=== PATIENT | female | born 1960 | race Caucasian/White ===

== ENCOUNTER 2016-10-26 08:37 | Day surgery (SDC) | payer OTHER ==
[~2016-10-26] VITALS: Ht 170.2 cm; Wt 50.3 kg
[~2016-10-26 08:37] MED LIST: AMLO5TAB2 PO; ASCO500T9 PO; CHOL100018 PO; LIDOCAINE 1% (10mg/ml) 2ml SDV INJ ONE; LISI1TAB9 PO; LR 1,000 ML IV SCH; MULT-488 PO; SERT50TA PO
--- OUTSIDE RECORDS SUMMARY | 2016-10-26 08:40 | XMS REPORT | Referral Summary ---
Author Author [facility], Family Medicine Organization [facility] Address Unknown Phone Unavailable Care Team Providers Care Etl Application Developer Name Role Phone Sebastian Pickering Primary Care Physician [phone] Encounter Date(s): 08/31/16 - 08/31/16 [facility] [address] [place] [id number] Discharge Diagnosis: Light tobacco smoker Discharge Diagnosis: Benign essential hypertension Discharge Diagnosis: Menopausal syndrome Discharge Diagnosis: Environmental and seasonal allergies Discharge Disposition: 01-Home or Self Care Attending Physician: Prerna Pickering DO Admitting Physician: Prerna Pickering DO Vital Signs Most recent to 1 oldest [Reference Range]: Temperature Tympanic 36.5 degC [36.6-38.1 degC] *LOW* (08/31/16 9:53 AM) Peripheral Pulse 78 bpm Rate [60-100 bpm] (08/31/16 9:53 AM) Respiratory Rate 15 br/min [14-20 br/min] (08/31/16 9:53 AM) Blood Pressure 110/60 mmHg [90-140/60-90 mmHg] (08/31/16 9:53 AM) SpO2 98 % (08/31/16 9:53 AM) Problem List Condition Effective Dates Status Health Status Informant Environmental and Active seasonal allergies(Confirmed) Benign essential Active hypertension(Confirm ed) Menopausal Active syndrome(Confirmed) Light tobacco Active smoker(Confirmed) Allergies, Adverse Reactions, Alerts Substance Reaction Severity Status Advil Active Medications amLODIPine 5 mg oral tablet 5 mg 1 tabs, Oral, Daily, # 30 tabs, 0 Refill(s) Start Date: 08/31/16 Status: Ordered lisinopril-hydrochlorothiazide 10 mg-12.5 mg oral tablet 1 tabs, Oral, Daily, # 30 tabs, 0 Refill(s) Start Date: 08/31/16 Status: Ordered One-A-Day Women 50 Plus oral tablet 1 tabs, Oral, Daily, # 30 tabs, 0 Refill(s) Start Date: 08/31/16 Status: Ordered sertraline 50 mg oral tablet 50 mg 1 tabs, Oral, Daily, # 90 tabs, 0 Refill(s), Pharmacy: [facility], 1 tabs Oral Daily Start Date: 08/31/16 Status: Ordered Vitamin C Daily, 0 Refill(s) Start Date: 08/31/16 Status: Ordered Vitamin D3 0 Refill(s) Start Date: 08/31/16 Status: Ordered Results Hematology Most recent to 1 oldest [Reference Range]: WBC [4.8-10.8 5.3 10*3/uL 10*3/uL] (08/31/16 10:50 AM) RBC [4.00-5.20] 3.92 *LOW* (08/31/16 10:50 AM) Hgb [12.0-16.0 12.7 gm/dL gm/dL] (08/31/16 10:50 AM) Hct [37.0-47.0 %] 36.9 % *LOW* (08/31/16 10:50 AM) MCV [82.0-99.0 fL] 94.1 fL (08/31/16 10:50 AM) MCH [27.0-32.0 pg] 32.4 pg *HI* (08/31/16 10:50 AM) MCHC [32.0-36.0 34.4 gm/dL gm/dL] (08/31/16 10:50 AM) RDW [11.5-14.5 %] 12.2 % (08/31/16 10:50 AM) Platelet [150-400 382 10*3/uL 10*3/uL] (08/31/16 10:50 AM) MPV [8.8-14.8 fL] 9.3 fL (08/31/16 10:50 AM) Immature 0.2 % Granulocytes (08/31/16 10:50 AM) [0.0-1.0 %] Neutrophils [51-75 36 % %] *LOW* (08/31/16 10:50 AM) Lymphocytes [20-46 49 % %] *HI* (08/31/16 10:50 AM) Monocytes [4-11 %] 13 % *HI* (08/31/16 10:50 AM) Eosinophils [0-4 %] 1 % (08/31/16 10:50 AM) Basophils [0-2 %] 0 % (08/31/16 10:50 AM) Neutro Absolute 1.91 [1.90-7.00] (08/31/16 10:50 AM) Lymph Absolute 2.59 [0.80-3.30] (08/31/16 10:50 AM) [place] Absolute 0.70 [0.30-1.00] (08/31/16 10:50 AM) Eos Absolute 0.05 [0.00-0.50] (08/31/16 10:50 AM) Baso Absolute 0.02 [0.00-0.20] (08/31/16 10:50 AM) Chemistry Most recent to 1 oldest [Reference Range]: Sodium Lvl [135-144 134 mEq/L mEq/L] *LOW* (08/31/16 10:50 AM) Potassium Lvl 3.8 mEq/L [3.5-5.2 mEq/L] (08/31/16 10:50 AM) Chloride [99-111 99 mEq/L mEq/L] (08/31/16 10:50 AM) CO2 [22-31 mEq/L] 25 mEq/L (08/31/16 10:50 AM) AGAP [3-20] 10 (08/31/16 10:50 AM) BUN [10-20 mg/dL] 8 mg/dL *LOW* (08/31/16 10:50 AM) Glucose Lvl [70-99 101 mg/dL mg/dL] *HI* (08/31/16 10:50 AM) Creatinine Lvl 0.67 mg/dL [0.57-1.11 mg/dL] (08/31/16 10:50 AM) eGFR [>60 mL/min] >60 mL/min 1 (08/31/16 10:50 AM) Calcium Lvl 9.0 mg/dL 2 [8.4-10.2 mg/dL] (08/31/16 10:50 AM) Albumin Lvl [3.5-5.0 4.2 gm/dL gm/dL] (08/31/16 10:50 AM) Total Protein 7.2 gm/dL [6.1-7.7 gm/dL] (08/31/16 10:50 AM) Globulin [1.8-4.0 3.0 gm/dL gm/dL] (08/31/16 10:50 AM) ALT [0-55 U/L] 48 U/L (08/31/16 10:50 AM) AST [5-34 U/L] 46 U/L *HI* (08/31/16 10:50 AM) Alk Phos [40-150 66 U/L U/L] (08/31/16 10:50 AM) Bili Total [0.2-1.2 0.4 mg/dL mg/dL] (08/31/16 10:50 AM) TSH with Reflex Free 1.02 T4 [0.35-4.94] (08/31/16 10:50 AM) Hgb A1c [4.1-5.6 %] 6.0 % *HI* (08/31/16 10:50 AM) eAvg Glucose 125.5 mg/dL (08/31/16 10:50 AM) 1Result Comment: Multiply eGFR results by 1.21 for race. 2Result Comment: Please note reference range change effective 08/10/2016. Immunizations No data available for this section Procedures Procedure Date Related Diagnosis Body Site Collection of venous blood by venipuncture 08/31/16 Appendectomy Surgery Tonsillectomy and adenoidectomy Social History Social History Type Response Smoking Status Current some day smoker; Type: Cigarettes; Tobacco use per day: Less than 1/4 pack Assessment and Plan Extracted from: Title: Office Visit Note Author: Prerna Pickering DO Date: 08/31/16 Assessment/Plan Abnormal weight loss Labs as below, patient is concerned about cost as her insurance doesn't seem to work in [place]. We discussed that it would probably be worthwhile to get at least a chest x-ray but further imaging was probably warranted given her weight loss and her smoking history. We also discussed that she likely needs a colonoscopy but patient would like to defer these until we see herlab work. Ordered: CBC w/ Differential Comprehensive Metabolic Panel Hemoglobin A1c Office Visit Level 4 New 00481 TSH with Reflex Free T4 Benign essential hypertension Continue current regimen, CMP today. Ordered: Office Visit Level 4 New [id number] Environmental and seasonal allergies We'll continue to monitor symptomatically at this time. Ordered: Office Visit Level 4 New 48486 Light tobacco smoker See above, concern for cancer due to weight loss. Ordered: Office Visit Level 4 New 19699 Menopausal syndrome We discussed options to control menopause at this time. We discussed hormonal options versus SSRIs for the vasovagal symptoms. Patient would like to try an SSRI. We put her on sertraline at a fairly small dose and she'll return to clinicin 6 weeks for reevaluation. Ordered: Office Visit Level 4 New [id number]
[2016-10-26 09:15] VITALS: Ht 170.2 cm; Wt 50.3 kg
[2016-10-26 09:16] VITALS: BP 121/71; PULSE 75; RESP 14; TEMP 98.4; O2SAT 96
--- NOTE | 2016-10-26 10:01 | NUR ---
LAB PATIENT HASN'T HAD A PERIOD FOR OVER A YEAR SO NO UA WAS DONE
--- NOTE | 2016-10-26 10:36 | ANESPREOP ---
Anesthesia Record Date and Time DATE: 10/26/16 TIME: 10:33 Pre-Op Diagnosis chg in bowel habits wt. loss family hx of stomach ca Proposed Surgical Procedure EGD,COLONOSCOPY Allergies: Coded Allergies: ibuprofen (Verified Allergy, Unknown, 10/26/16) Ht/Wt/BMI Height: 5 ' 7.00 " Weight: 50.300 kg BMI: 17.4 kg/m2 Vital Signs Date Time Temp Pulse Resp B/P Pulse Ox O2 Delivery O2 Flow Rate FiO2 10/26/16 09:16 98.4 75 14 121/71 96 Room Air Medications Inpatient Medications Current Medications Medications (Trade) Dose Ordered Sig/Jacek Start Time Stop Time Status Last Admin Dose Admin Lactated Ringer's (Lactated Ringers) 1,000 ml @ 30 mls/hr Q24H 10/26/16 07:00 10/26/16 09:45 30 MLS/HR Amlodipine Besylate (Amlodipine Besylate) 5 Mg Tablet, 5 MG PO DAILY, (Reported) Ascorbic Acid (Vitamin C) 500 Mg Tablet, 1 TAB PO DAILY, (Reported) Cholecalciferol (Vitamin D3) 1,000 Unit Tablet, 1 TAB PO DAILY, (Reported) Lisinopril/Hydrochlorothiazide (Lisinopril-Hctz 10-12.5 mg Tab) 1 Each Tablet, 1 TAB PO DAILY, (Reported) Multivitamin with Minerals (One Daily Complete) 1 Each Tablet, 1 TAB PO DAILY, ( Reported) Sertraline (Zoloft) 50 Mg Tablet, 50 MG PO DAILY, (Reported) Currently on Beta Magalie: No Medical/Surgical History Anesthesia PMH: Reports: *Diabetes (PREDIABETIC PER H&P), *Hypertension (PER H& P), Denies: Anesthesia Reactions (NO AIRWAY ISSUES), Cancer, Glaucoma, Malignant Hyperthermia, Sleep Apnea, Thyroid Disease Smoking Status: Current every day smoker Has pt. smoked today?: No Use Chewing Tobacco?: No Second Hand Exposure: No Substance Use Type: does not use Substance last used: unknown Alcohol Intake: daily Last Drink: unknown HX of Last Menstrual Period: UNKNOWN Past Surgical History Orthopedic Surgeries: Yes - RIGHT ARM 9 SCREWS AND A PLATE Abdominal Surgeries: Yes - APPY Genitourinary Surgeries: Cardiac Surgeries: Endocrine Surgeries: Reproductive Surgeries: Neurological Surgeries: Ear Surgeries: Nose Surgeries: Throat Surgeries: Yes - T&A PER H&P Other Surgeries: Anesthesia Adverse Reactions: FOUND none Family Hx of Anesthesia Advers: none Hx of Motion Sickness: No Pertinent Findings EKG Rhythm: Sinus Rhythm Physical Exam Respiratory: Bilat breath sounds equal, Lungs clear Cardiovascular: FOUND Regular rate, rhythm, FOUND No murmur Airway Assessment Mallampati Score: I TMD: 4 Fingerbreadths Neck Extension: Good Teeth: Upper Dentures, Lower Dentures Overall Assessment: No Airway Concerns ASA: 2 Plan Anesthesia Plan: TIVA Discussion Discussed risks/options/alternatives of anesthesia and questions answered. Patient consents. Nursing pain assessment noted. Present: Spouse Attestation Statement Prior to the delivery of any anesthetic medication, I examined the patient, developed the plan, obtained the patient's consent and discussed the risk and benefits of the procedure with the patient/guardian. CLIFTON HURD CRNA Oct 26, 2016 10:36
[2016-10-26] MEDS ORDERED: LIDOCAINE 1% (10mg/ml) 2ml SDV ONE (11:02)
[2016-10-26] MEDS ORDERED: PROPOFOL 500mg 50 ML IV ONE (11:02)
[2016-10-26] MEDS ORDERED: LIDOCAINE VISCOUS 2% Oral Soln 15ml UD ONE (11:17)
[2016-10-26 11:46] VITALS: BP 118/78; PULSE 91; RESP 24; O2SAT 97
[2016-10-26 12:00] VITALS: BP 154/68; PULSE 86; RESP 18; O2SAT 97
[2016-10-26 12:15] VITALS: BP 137/78; PULSE 75; RESP 18; O2SAT 98
--- NOTE | 2016-10-26 17:53 | OPNOTEF ---
DATE OF SERVICE 10/26/2016 SURGEON Mehdi Qiu MD PREOPERATIVE DIAGNOSES Change in bowel habits, history for unintentional weight loss, family history for gastric carcinoma. POSTOPERATIVE DIAGNOSES Change in bowel habits, history for unintentional weight loss, family history for gastric carcinoma. Normal EGD, normal colonoscopy. PROCEDURE Esophagogastroduodenoscopy, colonoscopy with random biopsies throughout colon via cold biopsy technique. ANESTHESIA TIVA BRIEF HISTORY/INDICATIONS Mrs. Plascencia is a 56-year-old female who presents today to [facility] to undergo bidirectional endoscopy as a result of her history for unintentional weight loss, family history for gastric carcinoma, history for change in bowel habits/onset of diarrhea. For completeness please refer to notes included in the patient's chart. FINDINGS Upon upper endoscopy the esophagus, stomach and duodenum were found to be normal limits. Upon colonoscopy no mucosal abnormalities were noted such as angiodysplastic lesions, polyps, diverticula or fina malignancies. There was no endoscopic evidence for colitis. Nonetheless, multiple random biopsies were obtained throughout the colon to rule in or rule out the process of microscopic/collagenous colitis. DESCRIPTION OF PROCEDURE After informed consent was obtained the patient was brought to the endoscopy suite and placed upon the table in left lateral decubitus position. The patient subsequently underwent total intravenous anesthesia by the nurse candy cutter hand at my request. Formal time-out was then completed. Next, an Olympus gastroscope was inserted into the oral hypopharynx and subsequently into the esophagus under direct visualization. Gastroscope was advanced through the esophagus, stomach, pylorus, duodenal bulb, second portion of the duodenum. Scope was then slowly withdrawn. First and second portions of the duodenum were within normal limits. No evidence of duodenitis or ulcerations was noted. Scope was drawn back to the prepyloric region and antrum. Again, no marked mucosal abnormalities were noted. J-maneuver was then performed. Cardia and fundus were within normal limits. Endoscopically, there was no evidence for hiatal hernia. Scope was allowed to straighten and was slowly withdrawn and the remaining corpus of the stomach was well visualized and again without noted abnormalities. Scope was drawn back to the level of the diaphragm. Squamocolumnar junction was located at the level of the diaphragm and was well demarcated with no endoscopic evidence for De Paz's metaplasia. Scope was continued to be slowly withdrawn and the remaining esophageal mucosa was found to be within normal limits. Next, attention was directed towards performing a colonoscopy. First, a digital rectal examination was performed. Normal sphincter tone. No rectal masses were appreciated. An Olympus colonoscope was inserted in the anus and advanced with the lumen of the colon under direct visualization at all times until the cecum was ascertained. Triangulation of the tenia coli, ileocecal valve and appendiceal lumen were all visualized. The scope was then slowly withdrawn, again maintaining visualization of the lumen at all times. Multiple random biopsies were obtained from the ascending colon, transverse colon, descending colon and rectum and placed within a single container. These biopsies were done via cold biopsy technique to rule in or rule out the process of microscopic/collagenous colitis. As stated above, the entire colon was without evidence for angiodysplastic lesions, polyps, diverticula or fina malignancies. One the colonoscope was withdrawn back to the rectal vault a J-maneuver was then performed. No worrisome perianal pathology was noted. The scope was allowed to straighten and was withdrawn through the anal verge. The patient tolerated the procedure without difficulty and was sent back to the preop area in stable condition. Will await the biopsy results from today's random biopsies from her colonoscopy and proceed accordingly with further recommendations thereafter. From a colorectal cancer surveillance standpoint, the patient will not need a repeat colonoscopy until 10 years from now unless new specific indications should arise in the future. BELINDA
== END 2016-10-26 12:27 | disposition home or self-care (01) ==
LOC: SCU 08:37
PROVIDERS: ATTEND Surgery
DX: R19.4 Change in bowel habit (principal); R63.4 Abnormal weight loss; Z80.0 Family history of malignant neoplasm of digestive organs
CPT/HCPCS: 43235; 45380; J7120